=== PATIENT | male | born 1945 | race Caucasian/White ===

== ENCOUNTER 2024-12-20 11:15 | Inpatient (IN) ==
--- NOTE | 2024-12-20 11:34 | Emergency Department Note ---
Impression & Plan Acute hypotension, Acute UTI, Weakness ED Provider Note NAME: ADELFO BURROWS AGE: 79 SEX: M : 1945 ARRIVES VIA: Ambulance INFORMANT: Patient ED PROVIDER(S): [place] Leal DO CHIEF COMPLAINT: Dizzy/weak HPI: Patient is a 79-year-old male with a past medical history of diabetes who presents to the ER for dizziness and weakness. He notes this has been present for the past week. He saw his PCP on Tuesday and they cut one of his blood pressure medications in half. He has fallen 3 times this week. Today he almost fell several times. This is significantly worse with changing positions. If he stays still it is better. He sometimes does get the feeling like the room is spinning. Denies any weakness or numbness in the arms or legs. No headache or change in vision. No chest pain or shortness of breath. No dysuria, urgency, or frequency. No other exacerbating or remitting factors. He does not know which medication they changed. ADDITIONAL HISTORY OBTAINED: Per HPI Chronic Medical/Social Conditions Affecting Care: Per HPI PAST MEDICAL HISTORY:See Below PAST SURGICAL HISTORY:See Below FAMILY HISTORY:See Below SOCIAL HISTORY:See Below HOME MEDICATIONS:See Below ALLERGIES:See Below VITALS:See Below PHYSICAL EXAMINATION: GENERAL: Sitting up in bed, alert, well appearing, well nourished, no distress, non-toxic EYE EXAM: normal conjunctiva. PERRL and EOM's grossly intact. OROPHARYNX: no exudate, no erythema, lips, buccal mucosa, and tongue normal and mucous membranes are moist NECK: supple, no nuchal rigidity, no adenopathy, non-tender LUNGS: Clear to auscultation. Normal chest wall mechanics HEART: no murmurs, S1 normal and S2 normal ABDOMEN: abdomen soft, non-tender, normo-active bowel sounds, no masses, no rebound or guarding. UPPER EXTREMITIES: upper extremities are grossly normal. LOWER EXTREMITIES: No pitting edema. NEURO EXAM: Normal sensorium, cranial nerves II-XII grossly intact, normal speech, no gross weakness of arms, no gross weakness of legs. No drift. Finger to nose intact. Gross sensation intact. MEDICAL DECISION MAKING: Patient is a 79-year-old male with a past medical history of cardiomyopathy and orthostasis who presents to the ER for the above-stated complaint. IV was established and blood work was obtained. Labs show mild leukocytosis 11.9 thousand. No significant anemia. BMP with mild hyponatremia at 131. LFTs and bilirubin were unremarkable. Lipase is normal. UA consistent with UTI. Blood pressures here were appropriate. External records were reviewed which were sent in which did [facility]s to 90s. Patient was given IV Rocephin updated at bedside as well as IV fluids. Discussed case with the hospitalist for further evaluation management treatment. CT angios of the head and neck were negative. Consults/Care Managements Discussions: Per [facility] Triage Nursing notes reviewed. Limited review of prior medical records performed Vital Signs: reviewed and remarkable for no significant abnormalities Differential diagnosis: Differential diagnosis includes etiologies such as benign positional vertigo, dehydration, hypovolemia, anemia, tumor, infection, hypoglycemia, electrolyte abnormalities, cardiac sources, intracerebral event, toxicologic, neurological, as well as others were entertained. ER treatment provided: See below Diagnostics interpreted by me include EKG and cardiac monitoring as listed below: -Cardiac Monitoring: An order was placed for continuous cardiac monitoring. The monitor shows a rate of 88 with sinus rhythm. -ECG: Sinus rhythm rate 88 Right bundle branch block QTc 505 -Laboratory studies:Interpreted by me as stated above in MDM and shown below. Imaging studies: Xrays: As interpreted by me: Portable AP upright 1 view of the chest shows no focal infiltrate CTs show: CT angios of the head and neck showed no acute pathology Procedures:none Critical Care: None Past Med/Surg History Problem List (Updated 12/20/24 @ 17:04 by Los Leal DO) Weakness (Acute) Acute UTI (Acute) Acute hypotension (Acute) HLD (hyperlipidemia) Orthostasis Cardiomyopathy Peripheral arterial disease (Chronic) Open wound of abdomen (Acute) Diabetic ulcer of left great toe (Acute) Social History Smoking Status: Former smoker Hx Alcohol Use: No Hx Substance Use: No Preferred Language: Afghan Communication Ability: Effective Hearing Ability: Normal Overhead Foreman Required: No Beliefs That Will Affect Care: None marital status: Unknown Current Living Situation: Family Current Living Situation Comment: Lives w/ daughter current occupation: retired Feels Safe at Home: Yes Diet: regular caffeine: Yes during the past year weight has: remained stable Assistive Devices: Cane and Walker Allergies Allergies Allergy/AdvReac Type Severity Reaction Status Date / Time doxycycline AdvReac Verified 11/30/24 13:06 gabapentin AdvReac Verified 11/30/24 13:06 morphine AdvReac Verified 11/30/24 13:06 niacin AdvReac Verified 11/30/24 13:06 [From Niaspan Extended-Release] semaglutide AdvReac Verified 11/30/24 13:06 spironolactone AdvReac Verified 11/30/24 13:06 Home Meds Home Medications Medication Instructions Recorded Confirmed acetaminophen 325 mg capsule 650 mg PO TID PRN PAIN/FEVER 11/01/24 12/20/24 amlodipine 10 mg tablet 10 mg PO DAILY 11/01/24 12/20/24 aspirin 81 mg tablet,delayed 81 mg PO DAILY 11/01/24 12/20/24 release azithromycin 250 mg tablet 250 mg PO .MWF 11/01/24 12/20/24 budesonide 160 mcg-glycopyr 9 2 inh inhalation BID 11/01/24 12/20/24 mcg-formot 4.8 mcg/actuation HFA inhaler (Breztri Aerosphere) calcium carbonate-ergocalciferol 1 cap PO BID 11/01/24 12/20/24 (vit D2) 1,200 mg-400 unit capsule carboxymethylcellulose sodium 1 % 1 drp ophthalmic (eye) QID 11/01/24 12/20/24 eye gel in a dropperette carvedilol 25 mg tablet 25 mg PO BID 11/01/24 12/20/24 cetirizine 10 mg tablet (Zyrtec) 10 mg PO DAILY PRN allergies 11/01/24 12/20/24 ciclopirox 8 % topical solution 1 applic topical DAILY 11/01/24 12/20/24 duloxetine 20 mg capsule,delayed 80 mg PO DAILY 11/01/24 12/20/24 release finasteride 5 mg tablet 5 mg PO DAILY 11/01/24 12/20/24 fluticasone propionate 50 1 spray intranasal BID PRN 11/01/24 12/20/24 mcg/actuation nasal Congestion spray,suspension (Flonase Allergy Relief) fremanezumab-vfrm 225 mg/1.5 mL 225 mg subcut MONTHLY 11/01/24 12/20/24 subcutaneous auto-injector guaifenesin 400 mg tablet 600 mg PO BID PRN cough 11/01/24 12/20/24 hydralazine 50 mg tablet 50 mg PO BID 11/01/24 12/20/24 insulin aspart U-100 100 unit/mL 18 unit subcut BID 11/01/24 12/20/24 (3 mL) subcutaneous pen (Novolog FlexPen U-100 Insulin aspart) insulin glargine 100 unit/mL (3 56 unit subcut UD 11/01/24 12/20/24 mL) subcutaneous pen liraglutide 0.6 mg/0.1 mL (18 mg/3 1.8 mg subcut DAILY 11/01/24 12/20/24 mL) subcutaneous pen injector (365Scores 2-Bhaskar) miconazole nitrate 2 % topical 1 applic topical BID 11/01/24 12/20/24 powder nortriptyline 25 mg capsule 50 mg PO .QHS PRN pain 11/01/24 12/20/24 omeprazole 20 mg capsule,delayed 20 mg PO BID 11/01/24 12/20/24 release polyethylene glycol 3350 17 17 g PO DAILY PRN Constipation 11/01/24 12/20/24 gram/dose oral powder primidone 50 mg tablet 125 mg PO .QHS tremors 11/01/24 12/20/24 tamsulosin 0.4 mg capsule 0.4 mg PO BID 11/01/24 12/20/24 ubrogepant 100 mg tablet 100 mg PO DIRECTED per migraine 11/01/24 12/20/24 instructions albuterol sulfate 90 mcg/actuation 2 puff inhalation Q6H PRN sob 12/20/24 12/20/24 aerosol inhaler carbamide peroxide 6.5 % ear drops 5 drp otic (ear) BID 12/20/24 12/20/24 dextrose 15 gram/33 gram oral gel 15 g PO DIRECTED PRN low sugar 12/20/24 12/20/24 packet glucagon HCl 1 mg solution for 1 mg IM DIRECTED PRN low blood 12/20/24 12/20/24 injection (Glucagon (HCl) sugar Emergency Kit) ketorolac 0.5 % eye drops 1 drp ophthalmic (eye) UD 12/20/24 12/20/24 metformin 500 mg tablet,extended 1,000 mg PO BID 12/20/24 12/20/24 release 24 hr mineral oil-isopropyl myristat 1 applic topical DAILY PRN Dry Skin 12/20/24 12/20/24 lotion moxifloxacin 0.5 % eye drops 1 drp ophthalmic (eye) QID 12/20/24 12/20/24 prednisolone acetate 1 % eye 1 drp ophthalmic (eye) QID 12/20/24 12/20/24 drops,suspension sacubitril 24 mg-valsartan 26 mg 1 tab PO BID 12/20/24 12/20/24 tablet (Entresto) sodium chloride 0.65 % nasal spray 1 spray intranasal DAILY PRN dry 12/20/24 12/20/24 aerosol nose zinc oxide 1 ea topical DAILY PRN skin 12/20/24 12/20/24 protectant Results & Data (ED) Vital Signs Vital Signs - 24 hr 12/20/24 11:24 12/20/24 11:27 12/20/24 11:30 Temperature 36.7 C Temperature Source Oral Pulse Rate 91 H 89 Pulse Rate from SpO2 Sensor Respiratory Rate 20 26 H Respiratory Effort / Characteristics Non-Labored Spontaneous Respiratory Depth Normal Respiratory Pattern Regular Blood Pressure 131/72 143/77 H Blood Pressure Mean 91 91 Pulse Oximetry 94 Oxygen Delivery Method Room Air Sepsis Recent Fever Within 48 Hours No Sepsis New/Unexplained Change in Mental Status No Sepsis Action Taken by Nursing No Action Required 12/20/24 11:30 12/20/24 11:39 12/20/24 11:46 Temperature Temperature Source Pulse Rate 89 83 Pulse Rate from SpO2 Sensor Respiratory Rate 15 14 Respiratory Effort / Characteristics Respiratory Depth Respiratory Pattern Blood Pressure 137/84 Blood Pressure Mean 105 Pulse Oximetry Oxygen Delivery Method Sepsis Recent Fever Within 48 Hours Sepsis New/Unexplained Change in Mental Status Sepsis Action Taken by Nursing 12/20/24 11:54 12/20/24 12:00 12/20/24 12:06 Temperature Temperature Source Pulse Rate 81 83 Pulse Rate from SpO2 Sensor 84 81 Respiratory Rate 13 14 Respiratory Effort / Characteristics Respiratory Depth Respiratory Pattern Blood Pressure 148/82 H Blood Pressure Mean 109 Pulse Oximetry 95 96 Oxygen Delivery Method Room Air Room Air Sepsis Recent Fever Within 48 Hours Sepsis New/Unexplained Change in Mental Status Sepsis Action Taken by Nursing 12/20/24 12:33 12/20/24 12:39 12/20/24 13:03 Temperature Temperature Source Pulse Rate 101 H 88 92 H Pulse Rate from SpO2 Sensor Respiratory Rate 20 21 Respiratory Effort / Characteristics Respiratory Depth Respiratory Pattern Blood Pressure Blood Pressure Mean Pulse Oximetry Oxygen Delivery Method Sepsis Recent Fever Within 48 Hours Sepsis New/Unexplained Change in Mental Status Sepsis Action Taken by Nursing Laboratory Data 12/20/24 11:27 12/20/24 11:27 Lab Results 12/20/24 12/20/24 Range/Units 11:27 12:22 WBC 10.92 H (4.8-10.8) K/ul RBC 5.66 (4.70-6.10) M/uL Hgb 15.1 (14.0-18.0) g/dl Hct 46.6 (42.0-52.0) % MCV 82.3 (80.0-100.0) fL MCH 26.7 (25.0-34.0) pg MCHC 32.4 (32.0-36.0) g/dL RDW Std Deviation 45.1 (36.4-46.3) fL RDW Coeff of Josue 14.9 H (11.5-14.5) % Plt Count 265 (130-400) K/uL MPV 9.3 L (9.4-12.4) fL Immature Gran % (Auto) 0.8 % Neut % (Auto) 72.2 % Lymph % (Auto) 14.1 % [place] % (Auto) 10.0 % Eos % (Auto) 2.2 % Baso % (Auto) 0.7 % Neut # (Auto) 7.88 H (1.40-6.50) K/uL Lymph # (Auto) 1.54 (1.20-3.40) K/uL [place] # (Auto) 1.09 H (0.11-0.59) K/uL Eos # (Auto) 0.24 (0.00-0.50) K/uL Baso # (Auto) 0.08 (0.00-0.20) K/uL Immature Gran # (Auto) 0.09 (0.01-0.20) K/uL Sodium 131 L (136-145) mmol/L Potassium 4.3 (3.5-5.1) mmol/L Chloride 94 L (98-107) mmol/L Carbon Dioxide 32 (21-32) mmol/L Anion Gap 5 (3-11) BUN 17 (6-23) mg/dl Creatinine 0.88 (0.6-1.4) mg/dl Est Cr Clr Drug Dosing 89.8 ml/min eGFR 88.56 BUN/Creatinine Ratio 19.3 (10-20) Glucose 237 H (70-99(Fasting)) mg/dl Calcium 9.8 (8.6-10.3) mg/dl Total Bilirubin 0.4 (0.2-1.0) mg/dl AST 13 (13-39) U/L ALT 12 (7-52) U/L Alkaline Phosphatase 82 (34-104) U/L Troponin I High Sens 5.9 (0-20) pg/ml Total Protein 7.4 (6.0-8.3) gm/dl Albumin 4.2 (3.4-5.0) gm/dl Globulin 3.2 (2.5-4.0) gm/dl Albumin/Globulin Ratio 1.3 (0.9-2) Lipase 18 (11-82) U/L Urine Color Yellow Urine Appearance Clear (Clear) Urine pH 7.0 (4.5-7.5) Ur Specific [place] 1.014 (1.000-1.030) Urine Protein Negative (Negative) Urine Glucose (UA) Negative (Negative) Urine Ketones Negative (Negative) Urine Blood Negative (Negative) Urine Nitrite Negative (Negative) Urine Bilirubin Negative (Negative) Urine Urobilinogen Negative (Negative) Ur Leukocyte Esterase 2+ H (Negative) Urine WBC (Auto) 21-50 H (0-5) /hpf Urine RBC (Auto) 0-2 (0-2) /hpf U Hyaline Cast (Auto) 0-2 (0-2) /lpf U Epithel Cells (Auto) 0-2 (0-2) /hpf Urine Bacteria (Auto) None Seen (None Seen) Administered Medications Discontinued Medications Sodium Chloride (Nss) 500 mls @ 999 mls/hr IV .Q31M ONE Stop: 12/20/24 12:01 Last Infusion: 12/20/24 12:34 Dose: Infused Documented By: Admin: 12/20/24 11:42 Dose: 999 mls/hr Documented By: JOJO Ceftriaxone Sodium (Rocephin) 2,000 mg in 50 mls @ 100 mls/hr IV NOW STA Stop: 12/20/24 13:19 Last Infusion: 12/20/24 13:38 Dose: Infused Documented By: Admin: 12/20/24 13:07 Dose: 100 mls/hr Documented By: JOSH Ioversol (Optiray 320 125ml) 119 ml IV ONCE ONE Stop: 12/20/24 12:26 Last Admin: 12/20/24 12:25 Dose: 119 ml Documented By: Imaging Data Radiologist's Impression: Chest X-Ray 12/20/24 11:31 XR chest 1V portable CLINICAL HISTORY: Chest pain, nonspecific COMPARISON STUDY: None FINDINGS: Left-sided cardiac pacemaker is present. Heart size and pulmonary vasculature are normal. Lungs are hyperexpanded suggesting emphysema. No effusion, consolidation, or pneumothorax. There is an old right mid rib fracture. IMPRESSION: No acute findings. ACT 112: Negative or not required by law. Electronically signed by: Remi Darling M.D. 12/20/2024 11:48 AM Head CTA 12/20/24 11:31 CT angio head wo/w CLINICAL HISTORY: dizzy COMPARISON STUDY: None FINDINGS: Noncontrast head CT: No intracranial hemorrhage seen. No mass effect, midline shift, or hydrocephalus. No skull fracture seen. CTA: The visualized distal left vertebral artery is extremely diminutive and terminates in PICA, anatomic variant. Distal right vertebral artery and bilateral distal internal carotid arteries are widely patent. Basilar artery is diminutive but patent. The anterior, middle, and posterior cerebral arteries are patent bilaterally. 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 Cerebral venous sinuses opacify normally. There is a 1.2 cm mass anterior left temporal lobe series 6 image 103, possible meningioma. IMPRESSION: 1. No acute findings. 2. No significant arterial narrowing or occlusion seen at the brain. 3. Possible small meningioma anterior left temporal lobe. ACT 112: Positive. There are findings on this exam that require communication between the performing entity and the patient following Patient Test Result Information Act ([place] Act 112) guidelines. Electronically signed by: Remi Darling M.D. 12/20/2024 12:40 PM Neck CTA 12/20/24 11:31 CT ANGIOGRAPHY OF THE NECK WITH CONTRAST CLINICAL HISTORY: Dizziness. COMPARISON STUDY: No previous studies for comparison. Technique: CT angiography of the carotid and vertebral arteries was obtained using Optiray and 3D reconstruction on an independent workstation. NASCET criteria was utilized. Automated exposure control was utilized for the study. A dose lowering technique was utilized adhering to the principles of ALARA. CT DOSE: 1255.61 mGy.cm Findings: Emphysema is incidentally noted within the visualized lung apices. There is no cervical lymphadenopathy. This exam is compromised by artifact related to contrast within the veins within the neck. The left vertebral artery is diminutive, likely on a congenital basis. Right vertebral artery is dominant. No stenosis or dissection within the right vertebral artery is present. There is mild plaque within the left carotid bifurcation without stenosis. There is moderate plaque within the right carotid bifurcation which results in mild stenosis of the proximal right internal carotid artery. Vessel measures 3.5 cm at site of narrowing and 4.8 mm distally. There is moderate stenosis at the origin the right external carotid artery. No aneurysm within the neck. IMPRESSION: 1. 30% stenosis of the proximal right internal carotid artery due to calcified atherosclerotic plaque. 2. Moderate stenosis at the origin the right external carotid artery. 3. Diminutive left vertebral artery, likely on a congenital basis. Dominant, patent right vertebral artery. ACT 112: Negative or not required by law. Electronically signed by: Farshad Fraire M.D. 12/20/2024 12:43 PM Discharge Plan Visit Data Chief Complaint: Dizziness Stated Complaint: DIZIINESS, HYPOTENSION ED Provider: Los Leal Discharge Problem: Acute hypotension, Acute UTI, Weakness Patient Disposition: Admitted As Inpatient Discharge Instructions Interventions: ED Discharge Assessment Last Done: 12/20/24 16:38
[2024-12-20] MEDS: SODIUM CHLORIDE 0.9% 500 ML IV ONE (11:42)
[2024-12-20 11:43] LABS: Basophils # (auto) 0.08 K/uL (0.00-0.20); Basophils % (auto) 0.7 %; Eosinophils # (auto) 0.24 K/uL (0.00-0.50); Eosinophils % (auto) 2.2 %; Hematocrit (blood only) 46.6 % (42.0-52.0); Hemoglobin 15.1 g/dl (14.0-18.0); Immature Granulocytes # (auto) 0.09 K/uL (0.01-0.20); Immature Granulocytes % (auto) 0.8 %; Lymphocytes # (auto) 1.54 K/uL (1.20-3.40); Lymphocytes % (auto) 14.1 %; Mean Corpuscular Hemoglobin 26.7 pg (25.0-34.0); Mean Corpuscular Hgb Conc 32.4 g/dL (32.0-36.0); Mean Corpuscular Volume 82.3 fL (80.0-100.0); Mean Platelet Volume 9.3 fL (9.4-12.4); Monocytes # (auto) 1.09 K/uL (0.11-0.59); Neutrophils # (auto) 7.88 K/uL (1.40-6.50); Neutrophils % (auto) 72.2 %; Platelet Count 265 K/uL (130-400); RDW Coefficient of Variation 14.9 % (11.5-14.5); RDW Standard Deviation 45.1 fL (36.4-46.3); Red Blood Count 5.66 M/uL (4.70-6.10); White Blood Count 10.92 K/ul (4.8-10.8)
--- NOTE | 2024-12-20 11:50 | XRay Report ---
XR chest 1V portable CLINICAL HISTORY: Chest pain, nonspecific COMPARISON STUDY: None FINDINGS: Left-sided cardiac pacemaker is present. Heart size and pulmonary vasculature are normal. L ungs are hyperexpanded suggesting emphysema. No effusion, consolidation, or pneumothorax. There is an old right mid rib fracture. IMPRESSION: No acute findings. ACT 112: Negative or not required by law. Electronically signed by: Remi Darling M.D. 12/20/2024 11:48 AM
[2024-12-20 12:02] LABS: Albumin Globulin Ratio 1.3 (0.9-2); Albumin Level 4.2 gm/dl (3.4-5.0); BUN Creatinine Ratio 19.3 (10-20); Bilirubin,Total 0.4 mg/dl (0.2-1.0); Calcium 9.8 mg/dl (8.6-10.3); Creatinine Clr Calc Pharmacy 89.8 ml/min; Globulin 3.2 gm/dl (2.5-4.0); Potassium 4.3 mmol/L (3.5-5.1); Total Protein 7.4 gm/dl (6.0-8.3)
[2024-12-20 12:08] LABS: Troponin I High Sensitivity 5.9 pg/ml (0-20)
[2024-12-20] MEDS: OPTIRAY 320 125ml IV ONE (12:25)
--- NOTE | 2024-12-20 12:42 | CT Scan Report ---
CT angio head wo/w CLINICAL HISTORY: dizzy COMPARISON STUDY: None FINDINGS: Noncontrast head CT: No intracranial hemorrhage seen. No mass effect, midline shift, or hydrocephalus . No skull fracture seen. CTA: The visualized distal left vertebral artery is extremely diminutive and terminates in PICA, rowdy omic variant. Distal right vertebral artery and bilateral distal internal carotid arteries are widely patent. Basilar artery is diminutive but patent. The anterior, middle, and posterior cerebral arteri es are patent bilaterally. 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 Cerebral venous sinuses opacify no rmally. There is a 1.2 cm mass anterior left temporal lobe series 6 image 103, possible meningioma. IMPRESSION: 1. No acute findings. 2. No significant arterial narrowing or occlusion seen at the brain. 3. Possible small meningioma anterior left temporal lobe. ACT 112: Positive. There are findings on this exam that require communication between the performing entity and the patient following Patient Test Result Information Act ([place] Act 112) guidelines. Electronically signed by: Remi Darling M.D. 12/20/2024 12:40 PM
--- NOTE | 2024-12-20 12:44 | CT Scan Report ---
CT ANGIOGRAPHY OF THE NECK WITH CONTRAST CLINICAL HISTORY: Dizziness. COMPARISON STUDY: No previous studies for comparison. Technique: CT angiography of the carotid and vertebral arteries was obtained using Optiray and 3D rec onstruction on an independent workstation. NASCET criteria was utilized. Automated exposure control was utilized for the study. A dose lowering technique was utilized adhering to the principles of ALA RA. CT DOSE: 1255.61 mGy.cm Findings: Emphysema is incidentally noted within the visualized lung apices. There is no cervical lym phadenopathy. This exam is compromised by artifact related to contrast within the veins within the ne ck. The left vertebral artery is diminutive, likely on a congenital basis. Right vertebral artery is dominant. No stenosis or dissection within the right vertebral artery is present. There is mild plaqu e within the left carotid bifurcation without stenosis. There is moderate plaque within the right car otid bifurcation which results in mild stenosis of the proximal right internal carotid artery. Vessel measures 3.5 cm at site of narrowing and 4.8 mm distally. There is moderate stenosis at the origin t he right external carotid artery. No aneurysm within the neck. IMPRESSION: 1. 30% stenosis of the proximal right internal carotid artery due to calcified atherosclerotic plaque . 2. Moderate stenosis at the origin the right external carotid artery. 3. Diminutive left vertebral artery, likely on a congenital basis. Dominant, patent right vertebral a rtery. ACT 112: Negative or not required by law. Electronically signed by: Farshad Fraire M.D. 12/20/2024 12:43 PM
[2024-12-20 12:45] LABS: Appearance Urine Clear (Clear); Bacteria Urine Automated None Seen (None Seen); Bilirubin Urine Negative (Negative); Blood Urine Negative (Negative); Cast Urine Automated 0-2 /lpf (0-2); Color Urine Yellow; Epithelial Cell Urine Auto 0-2 /hpf (0-2); Glucose Urine UA Negative (Negative); Ketones Urine Negative (Negative); Leukocyte Esterase Urine 2+ (Negative); Nitrite Urine Negative (Negative); Protein Urine Negative (Negative); RBC Urine Automated 0-2 /hpf (0-2); Specific Gravity Urine 1.014 (1.000-1.030); Urobilinogen Urine Negative (Negative); WBC Urine Automated 21-50 /hpf (0-5)
--- NOTE | 2024-12-20 12:51 | Electrocardiogram Report ---
Test Reason : Blood Pressure : */* mmHG Vent. Rate : 88 BPM Atrial Rate : 88 BPM P-R Int : 124 ms QRS Dur : 166 ms QT Int : 418 ms P-R-T Axes : 88 257 65 degrees QTcB Int : 505 ms Atrial sensing, ventricular pacing Premature ventricular complexes Abnormal ECG No previous ECGs available Confirmed by Emeterio Pond ([id number]) on 12/20/2024 12:50:42 PM Referred By: REFERRED SELF Confirmed By: Emeterio Pond
[2024-12-20] MEDS: cefTRIAXone SODIUM 2,000 MG/50 ML BAG IV STA (13:07)
--- NOTE | 2024-12-20 14:16 | History & Physical Report ---
Date of Service December 20, 2024 Assessment & Plan (1) Peripheral arterial disease: (2) Cardiomyopathy: (3) Orthostasis: (4) HLD (hyperlipidemia): Plan The patient is a 79-year-old male with a past medical history of cardiomyopathy, EF 25% who presents to the ED on with complaints of dizziness and frequent falls over the past month, recently worsening over the past week Dizziness Orthostasis Dizziness worsening with positional changes, suggestive of orthostasis Follows with outpatient cardiology for possible adjusting of cardiac medications Check orthostatic vitals, check echo, tried lightly with IV fluids with low EF of 25% Consult cardiology for further recommendations with extensive cardiac history Hx ischemic cardiomyopathy/CHF Hx HLD Hx HTN Continue carvedilol, hold hydralazine/Norvasc, continue Entresto Unclear if patient is currently on a diuretic, appears euvolemic on exam, will check BNP Hx COPD: Continue home inhalers, nonactive COPD exacerbation Hx DM2 -SSI/twice daily BGM, hold metformin, consult glycemic pharmacy A total of 60 minutes was spent on chart review/reviewing diagnostic data/facilitating plan of care/discussion with consultants Full code DVT prophylaxis: Lovenox History of Present Illness Chief Complaint: Dizziness, falls Primary Care Provider: Layla Scanlon PA-C The patient is a 79-year-old man with a past medical history of cardiomyopathy, nonischemicEF 20 to 25%, PM, mitral valve regurgitation, COPD, CHF, HTN, HLD who presents to the ED with complaints of ongoing dizziness and intermittent shortness of breath over the past month. Patient reports 34 recent falls over the past week due to dizziness with positional changes. Follows with cardiology. Poor historian. Unclear what cardiac medications he takes. He also reports being recently taken off one of his cardiac medications due to concerns of orthostasis. He is unsure which medication was changed. He reports his blood pressure was in the 80s when he was seen at the patternmaker grader office. He denies any lower extremity swelling. Denies any nausea/vomiting/diarrhea. Denies any abdominal pain. Reports dizziness with any type of movement. Follows with the [facility] outpatient for cardiology. Reports getting a recent echo and his EF is still 25%. On arrival to the ED, labs remarkable for WBC 10.9, NA 131, chloride 94, glucose 237 Chest x-ray negative Neck CTA showed: 1. 30% stenosis of the proximal right internal carotid artery due to calcified atherosclerotic plaque. 2. Moderate stenosis at the origin the right external carotid artery. 3. Diminutive left vertebral artery, likely on a congenital basis. Dominant, patent right vertebral artery. Head CTA showed: 1. No acute findings. 2. No significant arterial narrowing or occlusion seen at the brain. 3. Possible small meningioma anterior left temporal lobe. EKG without any acute changes The patient be admitted for further management of dizziness and orthostasis Allergies Allergy/AdvReac Type Severity Reaction Status Date / Time doxycycline AdvReac Verified 11/30/24 13:06 gabapentin AdvReac Verified 11/30/24 13:06 morphine AdvReac Verified 11/30/24 13:06 niacin AdvReac Verified 11/30/24 13:06 [From Niaspan Extended-Release] semaglutide AdvReac Verified 11/30/24 13:06 spironolactone AdvReac Verified 11/30/24 13:06 Home Medications Medication Instructions Recorded Confirmed Type acetaminophen 325 mg capsule 650 mg PO TID PRN PAIN/FEVER 11/01/24 12/20/24 History amlodipine 10 mg tablet 10 mg PO DAILY 11/01/24 12/20/24 History aspirin 81 mg tablet,delayed 81 mg PO DAILY 11/01/24 12/20/24 History release azithromycin 250 mg tablet 250 mg PO .MWF 11/01/24 12/20/24 History budesonide 160 mcg-glycopyr 9 2 inh inhalation BID 11/01/24 12/20/24 History mcg-formot 4.8 mcg/actuation HFA inhaler (Breztri Aerosphere) calcium carbonate-ergocalciferol 1 cap PO BID 11/01/24 12/20/24 History (vit D2) 1,200 mg-400 unit capsule carboxymethylcellulose sodium 1 % 1 drp ophthalmic (eye) QID 11/01/24 12/20/24 History eye gel in a dropperette carvedilol 25 mg tablet 25 mg PO BID 11/01/24 12/20/24 History cetirizine 10 mg tablet (Zyrtec) 10 mg PO DAILY PRN allergies 11/01/24 12/20/24 History ciclopirox 8 % topical solution 1 applic topical DAILY 11/01/24 12/20/24 History duloxetine 20 mg capsule,delayed 80 mg PO DAILY 11/01/24 12/20/24 History release finasteride 5 mg tablet 5 mg PO DAILY 11/01/24 12/20/24 History fluticasone propionate 50 1 spray intranasal BID PRN 11/01/24 12/20/24 History mcg/actuation nasal Congestion spray,suspension (Flonase Allergy Relief) fremanezumab-vfrm 225 mg/1.5 mL 225 mg subcut MONTHLY 11/01/24 12/20/24 History subcutaneous auto-injector guaifenesin 400 mg tablet 600 mg PO BID PRN cough 11/01/24 12/20/24 History hydralazine 50 mg tablet 50 mg PO BID 11/01/24 12/20/24 History insulin aspart U-100 100 unit/mL 18 unit subcut BID 11/01/24 12/20/24 History (3 mL) subcutaneous pen (Novolog FlexPen U-100 Insulin aspart) insulin glargine 100 unit/mL (3 56 unit subcut UD 11/01/24 12/20/24 History mL) subcutaneous pen liraglutide 0.6 mg/0.1 mL (18 mg/3 1.8 mg subcut DAILY 11/01/24 12/20/24 History mL) subcutaneous pen injector (TimeCast 2-Bhaskar) miconazole nitrate 2 % topical 1 applic topical BID 11/01/24 12/20/24 History powder nortriptyline 25 mg capsule 50 mg PO .QHS PRN pain 11/01/24 12/20/24 History omeprazole 20 mg capsule,delayed 20 mg PO BID 11/01/24 12/20/24 History release polyethylene glycol 3350 17 17 g PO DAILY PRN Constipation 11/01/24 12/20/24 History gram/dose oral powder primidone 50 mg tablet 125 mg PO .QHS tremors 11/01/24 12/20/24 History tamsulosin 0.4 mg capsule 0.4 mg PO BID 11/01/24 12/20/24 History ubrogepant 100 mg tablet 100 mg PO DIRECTED per migraine 11/01/24 12/20/24 History instructions albuterol sulfate 90 mcg/actuation 2 puff inhalation Q6H PRN sob 12/20/24 12/20/24 History aerosol inhaler carbamide peroxide 6.5 % ear drops 5 drp otic (ear) BID 12/20/24 12/20/24 History dextrose 15 gram/33 gram oral gel 15 g PO DIRECTED PRN low sugar 12/20/24 12/20/24 History packet glucagon HCl 1 mg solution for 1 mg IM DIRECTED PRN low blood 12/20/24 12/20/24 History injection (Glucagon (HCl) sugar Emergency Kit) ketorolac 0.5 % eye drops 1 drp ophthalmic (eye) UD 12/20/24 12/20/24 History metformin 500 mg tablet,extended 1,000 mg PO BID 12/20/24 12/20/24 History release 24 hr mineral oil-isopropyl myristat 1 applic topical DAILY PRN Dry Skin 12/20/24 12/20/24 History lotion moxifloxacin 0.5 % eye drops 1 drp ophthalmic (eye) QID 12/20/24 12/20/24 History prednisolone acetate 1 % eye 1 drp ophthalmic (eye) QID 12/20/24 12/20/24 History drops,suspension sacubitril 24 mg-valsartan 26 mg 1 tab PO BID 12/20/24 12/20/24 History tablet (Entresto) sodium chloride 0.65 % nasal spray 1 spray intranasal DAILY PRN dry 12/20/24 12/20/24 History aerosol nose zinc oxide 1 ea topical DAILY PRN skin 12/20/24 12/20/24 History protectant Past Med/Surg History Problem List (Updated 12/20/24 @ 14:28 by PEDRO Martinez) HLD (hyperlipidemia) Orthostasis Cardiomyopathy Peripheral arterial disease (Chronic) Open wound of abdomen (Acute) Diabetic ulcer of left great toe (Acute) Social History Smoking Status: Former smoker Hx Alcohol Use: No Hx Substance Use: No Preferred Language: Maori Communication Ability: Effective Hearing Ability: Normal Concrete Foreman Required: No Beliefs That Will Affect Care: None marital status: Unknown Current Living Situation: Family Current Living Situation Comment: Lives w/ daughter current occupation: retired Feels Safe at Home: Yes Diet: regular caffeine: Yes during the past year weight has: remained stable Assistive Devices: Cane and Walker Review of Systems Review of Systems: All systems reviewed & are unremarkable except as noted in HPI & below Physical Exam Constitutional: WD/WN, vitals as above Eyes: PERRL, conjunctivae normal, anicteric sclerae ENMT: external ear and nose normal, oropharynx normal Neck: trachea midline, no thyromegaly Respiratory: normal respiratory effort, lungs clear to auscultation Cardiovascular: RRR, no murmur, no edema Gastrointestinal (Abdomen): normal bowel sounds, soft, nontender, no hepatosplenomegaly Musculoskeletal: no cyanosis or clubbing, extremities motor strength 5/5 Neurologic: PERRL, EOMI, accommodation nl, no face palsy, no dysarthria Psychiatric: A+Ox3, euthymic affect Lymphatic: no cervical or axillary lymphadenopathy Results & Data Results & Data Vital Signs (Past 12 Hours) Vital Signs Temp Pulse Resp BP Pulse Ox O2 Del Method 12/20/24 13:31 151/77 H 12/20/24 13:15 152/100 H 12/20/24 13:15 89 17 96 Room Air 12/20/24 13:14 152/90 H 12/20/24 13:03 92 H 21 12/20/24 12:39 88 12/20/24 12:33 101 H 20 12/20/24 12:06 83 14 96 Room Air 12/20/24 12:00 148/82 H 12/20/24 11:54 81 13 95 Room Air 12/20/24 11:46 137/84 12/20/24 11:39 83 14 12/20/24 11:30 89 15 12/20/24 11:30 143/77 H 12/20/24 11:27 89 26 H 12/20/24 11:24 36.7 C 91 H 20 131/72 94 Room Air Diagnostic Findings Laboratory Results WBC 10.92 K/ul (4.8-10.8) H 12/20/24 11:27 RBC 5.66 M/uL (4.70-6.10) 12/20/24 11:27 Hgb 15.1 g/dl (14.0-18.0) 12/20/24 11:27 Hct 46.6 % (42.0-52.0) 12/20/24 11:27 MCV 82.3 fL (80.0-100.0) 12/20/24 11:27 MCH 26.7 pg (25.0-34.0) 12/20/24 11:27 MCHC 32.4 g/dL (32.0-36.0) 12/20/24 11:27 RDW Std Deviation 45.1 fL (36.4-46.3) 12/20/24 11:27 RDW Coeff of Josue 14.9 % (11.5-14.5) H 12/20/24 11:27 Plt Count 265 K/uL (130-400) 12/20/24 11:27 MPV 9.3 fL (9.4-12.4) L 12/20/24 11:27 Immature Gran % (Auto) 0.8 % 12/20/24 11:27 Neut % (Auto) 72.2 % 12/20/24 11:27 Lymph % (Auto) 14.1 % 12/20/24 11:27 [place] % (Auto) 10.0 % 12/20/24 11:27 Eos % (Auto) 2.2 % 12/20/24 11:27 Baso % (Auto) 0.7 % 12/20/24 11:27 Neut # (Auto) 7.88 K/uL (1.40-6.50) H 12/20/24 11:27 Lymph # (Auto) 1.54 K/uL (1.20-3.40) 12/20/24 11:27 [place] # (Auto) 1.09 K/uL (0.11-0.59) H 12/20/24 11:27 Eos # (Auto) 0.24 K/uL (0.00-0.50) 12/20/24 11:27 Baso # (Auto) 0.08 K/uL (0.00-0.20) 12/20/24 11:27 Immature Gran # (Auto) 0.09 K/uL (0.01-0.20) 12/20/24 11:27 Sodium 131 mmol/L (136-145) L 12/20/24 11:27 Potassium 4.3 mmol/L (3.5-5.1) 12/20/24 11:27 Chloride 94 mmol/L (98-107) L 12/20/24 11:27 Carbon Dioxide 32 mmol/L (21-32) 12/20/24 11:27 Anion Gap 5 (3-11) 12/20/24 11:27 BUN 17 mg/dl (6-23) 12/20/24 11:27 Creatinine 0.88 mg/dl (0.6-1.4) 12/20/24 11:27 Est Cr Clr Drug Dosing 89.8 ml/min 12/20/24 11:27 eGFR 88.56 12/20/24 11:27 BUN/Creatinine Ratio 19.3 (10-20) 12/20/24 11:27 Glucose 237 mg/dl (70-99(Fasting)) H 12/20/24 11:27 Calcium 9.8 mg/dl (8.6-10.3) 12/20/24 11:27 Total Bilirubin 0.4 mg/dl (0.2-1.0) 12/20/24 11:27 AST 13 U/L (13-39) 12/20/24 11:27 ALT 12 U/L (7-52) 12/20/24 11:27 Alkaline Phosphatase 82 U/L (34-104) 12/20/24 11:27 Troponin I High Sens 5.9 pg/ml (0-20) 12/20/24 11:27 Total Protein 7.4 gm/dl (6.0-8.3) 12/20/24 11:27 Albumin 4.2 gm/dl (3.4-5.0) 12/20/24 11:27 Globulin 3.2 gm/dl (2.5-4.0) 12/20/24 11:27 Albumin/Globulin Ratio 1.3 (0.9-2) 12/20/24 11:27 Lipase 18 U/L (11-82) 12/20/24 11:27 Urine Color Yellow 12/20/24 12:22 Urine Appearance Clear (Clear) 12/20/24 12:22 Urine pH 7.0 (4.5-7.5) 12/20/24 12:22 Ur Specific Chancellor 1.014 (1.000-1.030) 12/20/24 12:22 Urine Protein Negative (Negative) 12/20/24 12:22 Urine Glucose (UA) Negative (Negative) 12/20/24 12:22 Urine Ketones Negative (Negative) 12/20/24 12:22 Urine Blood Negative (Negative) 12/20/24 12:22 Urine Nitrite Negative (Negative) 12/20/24 12:22 Urine Bilirubin Negative (Negative) 12/20/24 12:22 Urine Urobilinogen Negative (Negative) 12/20/24 12:22 Ur Leukocyte Esterase 2+ (Negative) H 12/20/24 12:22 Urine WBC (Auto) 21-50 /hpf (0-5) H 12/20/24 12:22 Urine RBC (Auto) 0-2 /hpf (0-2) 12/20/24 12:22 U Hyaline Cast (Auto) 0-2 /lpf (0-2) 12/20/24 12:22 U Epithel Cells (Auto) 0-2 /hpf (0-2) 12/20/24 12:22 Urine Bacteria (Auto) None Seen (None Seen) 12/20/24 12:22 Impressions Chest X-Ray 12/20/24 11:31 XR chest 1V portable CLINICAL HISTORY: Chest pain, nonspecific COMPARISON STUDY: None FINDINGS: Left-sided cardiac pacemaker is present. Heart size and pulmonary vasculature are normal. Lungs are hyperexpanded suggesting emphysema. No effusion, consolidation, or pneumothorax. There is an old right mid rib fracture. IMPRESSION: No acute findings. ACT 112: Negative or not required by law. Electronically signed by: Remi Darling M.D. 12/20/2024 11:48 AM Head CTA 12/20/24 11:31 CT angio head wo/w CLINICAL HISTORY: dizzy COMPARISON STUDY: None FINDINGS: Noncontrast head CT: No intracranial hemorrhage seen. No mass effect, midline shift, or hydrocephalus. No skull fracture seen. CTA: The visualized distal left vertebral artery is extremely diminutive and terminates in PICA, anatomic variant. Distal right vertebral artery and bilateral distal internal carotid arteries are widely patent. Basilar artery is diminutive but patent. The anterior, middle, and posterior cerebral arteries are patent bilaterally. There is origin of the right WAREHOUSE REPRESENTATIVE. Cerebral venous sinuses opacify normally. There is a 1.2 cm mass anterior left temporal lobe series 6 image 103, possible meningioma. IMPRESSION: 1. No acute findings. 2. No significant arterial narrowing or occlusion seen at the brain. 3. Possible small meningioma anterior left temporal lobe. ACT 112: Positive. There are findings on this exam that require communication between the performing entity and the patient following Patient Test Result Information Act ([place] Act 112) guidelines. Electronically signed by: Remi Darling M.D. 12/20/2024 12:40 PM Neck CTA 12/20/24 11:31 CT ANGIOGRAPHY OF THE NECK WITH CONTRAST CLINICAL HISTORY: Dizziness. COMPARISON STUDY: No previous studies for comparison. Technique: CT angiography of the carotid and vertebral arteries was obtained using Optiray and 3D reconstruction on an independent workstation. NASCET criteria was utilized. Automated exposure control was utilized for the study. A dose lowering technique was utilized adhering to the principles of ALARA. CT DOSE: 1255.61 mGy.cm Findings: Emphysema is incidentally noted within the visualized lung apices. There is no cervical lymphadenopathy. This exam is compromised by artifact related to contrast within the veins within the neck. The left vertebral artery is diminutive, likely on a congenital basis. Right vertebral artery is dominant. No stenosis or dissection within the right vertebral artery is present. There is mild plaque within the left carotid bifurcation without stenosis. There is moderate plaque within the right carotid bifurcation which results in mild stenosis of the proximal right internal carotid artery. Vessel measures 3.5 cm at site of narrowing and 4.8 mm distally. There is moderate stenosis at the origin the right external carotid artery. No aneurysm within the neck. IMPRESSION: 1. 30% stenosis of the proximal right internal carotid artery due to calcified atherosclerotic plaque. 2. Moderate stenosis at the origin the right external carotid artery. 3. Diminutive left vertebral artery, likely on a congenital basis. Dominant, patent right vertebral artery. ACT 112: Negative or not required by law. Electronically signed by: Farshad Fraire M.D. 12/20/2024 12:43 PM Supervising Physician Co-Signing Physician Notes Attending addendum: The patient was seen and examined in emergency room He has been complaining of dizziness with ambulation and recurrent falls for the last 1 week He mentioned that he is cardiac medication other changes recently Denies any associated symptoms with the dizziness, no chest pain or palpitation, no nausea no vomiting, no sweating or increasing shortness of breath On examination Lying in bed without any acute distress Remains hemodynamically stable at rest on lying down Chestdecreased breath sound at the bases without crackles, has occasional wheezing anteriorly HeartS1-S2, regular, has soft systolic murmur Abdomenbenign Extremitiesno edema CNSalert,awake and oriented x 3 and no focal sensory or no motor deficit appreciated He is admission labs, imaging studies and medications reviewed Has been having dizziness likely secondary to postural hypotension with significant cardiac history as mentioned in H&P May have autonomic neuropathy secondary to diabetes and also mild dehydration His hydralazine and Nosvasc have been on hold and will continue all of his other medications and observe in the hospital He will have an echocardiogram and also will be seen by patternmaker grader given the complexity of cardiac problem Orthostatics will be checked and managed accordingly with medication if needed Agree with assessment plan as outlined above by PEDRO Alcaraz and take the full responsibility of care in the hospital Total time taken in documenting all this was [address] Mohan Morgan
[2024-12-20] MEDS ORDERED: DEXTROSE 50% 50 ML SYRINGE IV PRN (14:41)
[2024-12-20] MEDS ORDERED: PHARMACY GLYCEMIC MGMT CONSULT PRN (14:41)
[2024-12-20] MEDS ORDERED: GLUCOSE 10 TAB/TUBE PO PRN (14:41)
[2024-12-20] MEDS ORDERED: GLUCAGON FOR INJ 1 MG VIAL SQ PRN (14:41)
[2024-12-20] MEDS ORDERED: CARBOHYDRATES FOR HYPOGLYCEMIA PO PRN (14:41)
[2024-12-20] MEDS ORDERED: GLUCOSE 40% GEL 15 GM TUBE PO PRN (14:41)
--- NOTE | 2024-12-20 15:14 | Pharmacy Report ---
Pharmacy Glycemic Short Note 2 - Date of Service December 20, 2024 - Glycemic Short BSG Results (Last 24 hours): 12/20/24 11:27 Glucose 237 H OUTPATIENT ANTIDIABETIC REGIMEN: * Victoza 1.8mg SQ daily * NovoLog 18 units SQ BID * metformin 1000mg BID * HbA1c pending (12/21/24) ASSESSMENT: * Shelton is a 79 year old male admitted with dizziness and falls with a history of type 2 diabetes mellitus. Pharmacy has been consulted to assist with glycemic management while inpatient. * BSG upon admission elevated, will initiate basal insulin up to a weight based stress of 2 with dinner meal based on BSG. * NovoLog initiated at a weight based stress of 2, will stick with a higher goal range for now as presenting with dizziness and falls and do not want to cause additional hypoglycemia. PLAN FOR INPATIENT GLYCEMIC CONTROL: * Hold outpatient oral diabetes medications * Basal insulin * Lantus 0-20 units SQ QDD x1 based on BSG (see eMAR for additional details), reassess in AM * Bolus insulin * NovoLog per scale ACHS or Q6hrs while NPO * Goal Range: Low 140 mg/dL - High 140 mg/dL * Correction Factor: 25 mg/dL/unit * Nutritional / Prandial insulin per carb ratio of 1 unit per 8 grams CHO consumed
[2024-12-20] MEDS: INSULIN ASPART PER UNIT CHARGE SC SCH (18:04)
[2024-12-20] MEDS: LANTUS PER UNIT CHARGE SC ONE (18:05)
[2024-12-20] MEDS: CALCIUM CARBONATE 500 MG CHEWABLE TAB PO PRN (19:54)
[2024-12-20] MEDS: guaiFENesin/DEXTROM SYRUP 100MG/10MG 5ML UDC PO PRN (20:30)
[2024-12-20] MEDS: VALSARTAN/SACUBITRIL 26/24MG TAB PO SCH (20:31)
[2024-12-20] MEDS: carvediloL 25 MG TAB PO SCH (20:31)
[2024-12-20] MEDS: PANTOprazole 40 MG TAB PO PRN (22:37)
[2024-12-21] MEDS: ACETAMINOPHEN 325 MG TAB PO PRN (00:32)
[2024-12-21 07:39] LABS: Basophils # (auto) 0.07 K/uL (0.00-0.20); Eosinophils # (auto) 0.25 K/uL (0.00-0.50); Eosinophils % (auto) 3.4 %; Hemoglobin 14.1 g/dl (14.0-18.0); Immature Granulocytes # (auto) 0.05 K/uL (0.01-0.20); Immature Granulocytes % (auto) 0.7 %; Lymphocytes # (auto) 1.08 K/uL (1.20-3.40); Lymphocytes % (auto) 14.7 %; Mean Corpuscular Hgb Conc 32.8 g/dL (32.0-36.0); Mean Corpuscular Volume 82.2 fL (80.0-100.0); Monocytes % (auto) 13.6 %; Neutrophils # (auto) 4.89 K/uL (1.40-6.50); Neutrophils % (auto) 66.6 %; Platelet Count 226 K/uL (130-400); RDW Coefficient of Variation 14.9 % (11.5-14.5); RDW Standard Deviation 44.7 fL (36.4-46.3); Red Blood Count 5.23 M/uL (4.70-6.10); White Blood Count 7.34 K/ul (4.8-10.8)
[2024-12-21 07:53] LABS: Albumin Globulin Ratio 1.4 (0.9-2); Albumin Level 3.8 gm/dl (3.4-5.0); BUN Creatinine Ratio 13.4 (10-20); Bilirubin,Total 0.4 mg/dl (0.2-1.0); Calcium 8.6 mg/dl (8.6-10.3); Creatinine Clr Calc Pharmacy 87.7 ml/min; Globulin 2.8 gm/dl (2.5-4.0); Magnesium 1.9 mg/dl (1.7-2.4); Total Protein 6.6 gm/dl (6.0-8.3)
--- NOTE | 2024-12-21 08:31 | Hospitalist Progress Note ---
Date of Service December 21, 2024 Assessment & Plan (1) Peripheral arterial disease: (2) Cardiomyopathy: (3) Orthostasis: (4) HLD (hyperlipidemia): Plan The patient is a 79-year-old male with a past medical history of cardiomyopathy, EF 25% who presents to the ED on with complaints of dizziness and frequent falls over the past month, recently worsening over the past week Dizziness Orthostasis Dizziness worsening with positional changes, suggestive of orthostasis Follows with outpatient cardiology for possible adjusting of cardiac medications Check orthostatic vitals, check echo, tried lightly with IV fluids with low EF of 25% Consult cardiology for further recommendations with extensive cardiac history Hx ischemic cardiomyopathy/CHF Hx HLD Hx HTN Continue carvedilol, hold hydralazine/Norvasc, continue Entresto Unclear if patient is currently on a diuretic, appears euvolemic on exam Per cardiology- Recommendations: * Hold hydralazine and amlodipine * Continue carvedilol and Entresto as ordered * No need for diuretic therapy currently * Add bilateral compression stockings. 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 pain, n/v, no dysuria Review of Systems Review of Systems: All systems reviewed & are unremarkable except as noted in Subjective Physical Exam Physical Exam: Constitutional: WD/WN, vitals as a haider Eyes: PERRL, EOMI, conju nctivae normal, an icteric sclerae ENMT: external ear and n ose normal Neck: supple Respiratory: normal respiratory effort, lungs nighat ar to auscultation Cardiovascular: RRR, no murmur, no edema Gastrointestinal ( Abdomen): normal bowel sound s, soft, nontender Musculoskeletal: extremities motor strength 5/5 Neurologic: PERRL, EOMI, no fa ce palsy, no dysar thria, moves extre mities Psychiatric: A+Ox3, euthymic af fect Results & Data Results & Data Vital Signs (Past 12 Hours) Vital Signs Temp Pulse Pulse Resp BP Pulse Ox O2 Del Method 12/21/24 07:00 36.8 C 87 20 147/83 H 94 Room Air 12/21/24 03:36 36.5 C 94 Room Air 12/21/24 00:16 36.8 C 98 H 18 150/71 H 94 Room Air 12/20/24 21:48 98 H Laboratory Results 12/21/24 12/21/24 12/20/24 Range/Units 07:14 07:01 20:21 WBC 7.34 (4.8-10.8) K/ul RBC 5.23 (4.70-6.10) M/uL Hgb 14.1 (14.0-18.0) g/dl Hct 43.0 (42.0-52.0) % MCV 82.2 (80.0-100.0) fL MCH 27.0 (25.0-34.0) pg MCHC 32.8 (32.0-36.0) g/dL RDW Std Deviation 44.7 (36.4-46.3) fL RDW Coeff of Josue 14.9 H (11.5-14.5) % Plt Count 226 (130-400) K/uL MPV 9.0 L (9.4-12.4) fL Immature Gran % (Auto) 0.7 % Neut % (Auto) 66.6 % Lymph % (Auto) 14.7 % [place] % (Auto) 13.6 % Eos % (Auto) 3.4 % Baso % (Auto) 1.0 % Neut # (Auto) 4.89 (1.40-6.50) K/uL Lymph # (Auto) 1.08 L (1.20-3.40) K/uL [place] # (Auto) 1.00 H (0.11-0.59) K/uL Eos # (Auto) 0.25 (0.00-0.50) K/uL Baso # (Auto) 0.07 (0.00-0.20) K/uL Immature Gran # (Auto) 0.05 (0.01-0.20) K/uL Sodium 135 L (136-145) mmol/L Potassium 4.0 (3.5-5.1) mmol/L Chloride 99 (98-107) mmol/L Carbon Dioxide 31 (21-32) mmol/L Anion Gap 5 (3-11) BUN 11 (6-23) mg/dl Creatinine 0.82 (0.6-1.4) mg/dl Est Cr Clr Drug Dosing 87.7 ml/min eGFR 90.47 BUN/Creatinine Ratio 13.4 (10-20) Glucose 162 H (70-99(Fasting)) mg/dl POC Glucose 154 H 174 H (70-99) mg/dl Estimat Average Glucose Pending Hemoglobin A1c Pending Calcium 8.6 (8.6-10.3) mg/dl Magnesium 1.9 (1.7-2.4) mg/dl Total Bilirubin 0.4 (0.2-1.0) mg/dl AST 12 L (13-39) U/L ALT 10 (7-52) U/L Alkaline Phosphatase 72 (34-104) U/L Troponin I High Sens (0-20) pg/ml Total Protein 6.6 (6.0-8.3) gm/dl Albumin 3.8 (3.4-5.0) gm/dl Globulin 2.8 (2.5-4.0) gm/dl Albumin/Globulin Ratio 1.4 (0.9-2) Lipase (11-82) U/L Urine Color Urine Appearance (Clear) Urine pH (4.5-7.5) Ur Specific [place] (1.000-1.030) Urine Protein (Negative) Urine Glucose (UA) (Negative) Urine Ketones (Negative) Urine Blood (Negative) Urine Nitrite (Negative) Urine Bilirubin (Negative) Urine Urobilinogen (Negative) Ur Leukocyte Esterase (Negative) Urine WBC (Auto) (0-5) /hpf Urine RBC (Auto) (0-2) /hpf U Hyaline Cast (Auto) (0-2) /lpf U Epithel Cells (Auto) (0-2) /hpf Urine Bacteria (Auto) (None Seen) 12/20/24 12/20/24 12/20/24 Range/Units 16:33 12:22 11:27 WBC 10.92 H (4.8-10.8) K/ul RBC 5.66 (4.70-6.10) M/uL Hgb 15.1 (14.0-18.0) g/dl Hct 46.6 (42.0-52.0) % MCV 82.3 (80.0-100.0) fL MCH 26.7 (25.0-34.0) pg MCHC 32.4 (32.0-36.0) g/dL RDW Std Deviation 45.1 (36.4-46.3) fL RDW Coeff of Josue 14.9 H (11.5-14.5) % Plt Count 265 (130-400) K/uL MPV 9.3 L (9.4-12.4) fL Immature Gran % (Auto) 0.8 % Neut % (Auto) 72.2 % Lymph % (Auto) 14.1 % [place] % (Auto) 10.0 % Eos % (Auto) 2.2 % Baso % (Auto) 0.7 % Neut # (Auto) 7.88 H (1.40-6.50) K/uL Lymph # (Auto) 1.54 (1.20-3.40) K/uL [place] # (Auto) 1.09 H (0.11-0.59) K/uL Eos # (Auto) 0.24 (0.00-0.50) K/uL Baso # (Auto) 0.08 (0.00-0.20) K/uL Immature Gran # (Auto) 0.09 (0.01-0.20) K/uL Sodium 131 L (136-145) mmol/L Potassium 4.3 (3.5-5.1) mmol/L Chloride 94 L (98-107) mmol/L Carbon Dioxide 32 (21-32) mmol/L Anion Gap 5 (3-11) BUN 17 (6-23) mg/dl Creatinine 0.88 (0.6-1.4) mg/dl Est Cr Clr Drug Dosing 89.8 ml/min eGFR 88.56 BUN/Creatinine Ratio 19.3 (10-20) Glucose 237 H (70-99(Fasting)) mg/dl POC Glucose 157 H (70-99) mg/dl Estimat Average Glucose Hemoglobin A1c Calcium 9.8 (8.6-10.3) mg/dl Magnesium (1.7-2.4) mg/dl Total Bilirubin 0.4 (0.2-1.0) mg/dl AST 13 (13-39) U/L ALT 12 (7-52) U/L Alkaline Phosphatase 82 (34-104) U/L Troponin I High Sens 5.9 (0-20) pg/ml Total Protein 7.4 (6.0-8.3) gm/dl Albumin 4.2 (3.4-5.0) gm/dl Globulin 3.2 (2.5-4.0) gm/dl Albumin/Globulin Ratio 1.3 (0.9-2) Lipase 18 (11-82) U/L Urine Color Yellow Urine Appearance Clear (Clear) Urine pH 7.0 (4.5-7.5) Ur Specific [place] 1.014 (1.000-1.030) Urine Protein Negative (Negative) Urine Glucose (UA) Negative (Negative) Urine Ketones Negative (Negative) Urine Blood Negative (Negative) Urine Nitrite Negative (Negative) Urine Bilirubin Negative (Negative) Urine Urobilinogen Negative (Negative) Ur Leukocyte Esterase 2+ H (Negative) Urine WBC (Auto) 21-50 H (0-5) /hpf Urine RBC (Auto) 0-2 (0-2) /hpf U Hyaline Cast (Auto) 0-2 (0-2) /lpf U Epithel Cells (Auto) 0-2 (0-2) /hpf Urine Bacteria (Auto) None Seen (None Seen) Medications Administered Current Inpatient Medications Acetaminophen (Acetaminophen 325 Mg Tab) 650 mg PO Q4H PRN PRN Reason: Pain or Fever Stop: 01/19/25 16:57 Last Admin: 12/21/24 00:32 Dose: 650 mg Aspirin (Aspirin 81 Mg Ectab) 81 mg PO DAILY ON LICENSE OF [facility] Stop: 01/20/25 08:59 Calcium Carbonate (Calcium Carbonate 500 Mg Chewable Tab) 500 mg PO Q6H PRN PRN Reason: Indigestion Stop: 01/19/25 18:36 Last Admin: 12/20/24 19:54 Dose: 500 mg Carvedilol (Carvedilol 25 Mg Tab) 25 mg PO BIDM ON LICENSE OF [facility] Stop: 01/19/25 20:59 Last Admin: 12/20/24 20:31 Dose: 25 mg Dextrose (Dextrose 50% 50 Ml Syringe) 25 - 50 ml IV UD PRN; Protocol PRN Reason: Hypoglycemia Protocol Stop: 01/19/25 14:40 Duloxetine HCl (Duloxetine Hcl 20 Mg Cap) 80 mg PO DAILY ON LICENSE OF [facility] Stop: 01/20/25 08:59 Enoxaparin Sodium (Enoxaparin Inj 40 Mg/0.4 Ml Syr) 40 mg SQ DAILY ANTONIO Stop: 01/20/25 08:59 Fluticasone Furoate (Fluticasone Furoate 200mcg 14 Puffs/Inhaler) 1 puffs INH DAILY ANTONIO Stop: 01/20/25 08:59 Glucagon (Glucagon For Inj 1 Mg Vial) 1 mg SQ UD PRN; Protocol PRN Reason: Hypoglycemia Protocol Stop: 01/19/25 14:40 Glucose (Glucose 40% Gel 15 Gm Tube) 15 - 30 gm PO UD PRN; Protocol PRN Reason: Hypoglycemia Protocol Stop: 01/19/25 14:40 Glucose (Glucose 10 Tab/Tube) 4 - 8 tab PO UD PRN; Protocol PRN Reason: Hypoglycemia Protocol Stop: 01/19/25 14:40 Guaifenesin/Dextromethorphan (Guaifenesin/Dextrom Syrup 100mg/10mg 5ml Udc) 5 ml PO Q6H PRN PRN Reason: Cough Stop: 01/19/25 20:02 Last Admin: 12/21/24 02:44 Dose: 5 ml Insulin Aspart (Insulin Aspart Per Unit Charge) 0 units SC ACHS ON LICENSE OF [facility] Stop: 01/19/25 16:29 Last Admin: 12/20/24 20:28 Dose: Not Given Miscellaneous (Carbohydrates For Hypoglycemia ) 15 - 30 gm PO UD PRN PRN Reason: Hypoglycemia Protocol Stop: 01/19/25 14:40 Miscellaneous Information (Pharmacy Glycemic Mgmt Consult) 1 each N/A UD PRN PRN Reason: Consult Stop: 01/19/25 14:40 Nortriptyline HCl (Nortriptyline Hcl 25 Mg Cap) 50 mg PO HS PRN PRN Reason: pain Stop: 01/19/25 16:57 Pantoprazole Sodium (Pantoprazole 40 Mg Tab) 40 mg PO DAILY PRN PRN Reason: gerd Stop: 01/19/25 17:36 Last Admin: 12/20/24 22:37 Dose: 40 mg Sacubitril/Valsartan (Valsartan/Sacubitril 26/24mg Tab) 1 tab PO BID ANTONIO Stop: 01/19/25 20:59 Last Admin: 12/20/24 20:31 Dose: 1 tab Tamsulosin HCl (Tamsulosin Hcl 0.4 Mg Cap) 0.4 mg PO DAILY ON LICENSE OF [facility] Stop: 01/20/25 08:59 Umeclidinium/Vilanterol (Umeclidinium/Vilanterol 62.5/25mcg 7 Puffs/Inhaler) 1 puffs INH DAILY ANTONIO Stop: 01/20/25 08:59
--- NOTE | 2024-12-21 08:33 | Cardiology Consultation ---
Date of Consultation December 21, 2024 Assessment & Plan (1) Orthostasis: (2) Dizziness: (3) Dilated cardiomyopathy: (4) Biventricular automatic implantable cardioverter defibrillator in situ: Plan Patient admitted with weakness, dizziness, orthostasis over the last few weeks. Symptoms of orthostatic hypotension started upon [facility] He was taking other high dose antihypertensives at home, likely contributing. Amlodipine and hydralazine discontinued on admission. Continue carvedilol 25 mg BID Continue low dose Entresto 25 mg BID Can reduce doses if needed. He is also on finasteride and Flomax as an outpatient likely contributing to his symptoms. Orthostatic vital signs recommended Compression stockings recommended. Mild permissive hypertension recommended. He also has a long history of neuropathy, and tremors/possible Parkinson per review of chart. These patients are prone to orthostatic hypotension. Long history of dilated non ischemic cardiomyopathy, LVEF 25% with BIV AICD in situ. He reports echo at [facility] recently was unchanged. No arrhythmias on device interrogation Appears euvolemic. Would avoid diuretics at this time Case discussed with Dr. Garcia I spent a total of 60 minutes on the date of service in preparation, delivery, and documentation of the care provided to this patient, excluding any time spent in the performance of separately billed services. Marysol Ziegler PA-C Department of Cardiology, [facility] This chart was completed in part utilizing Speech Voice Recognition Software. Grammatical errors, random word insertions, pronoun errors, and incomplete sen tences are an occasional consequence of this system due to software limitations, ambient noise, and hardware issues. Any formal questions or concerns about the content, text, or information contained within the body of this dictation should be directly addressed to the provider for clarification. Supervising Physician Co-Signing Physician Notes I have personally performed a history and physical examination on the patient. I have reviewed the advance practitioner's documentation, and I agree with, and take responsibility for the plan of care. Complex 79-year-old male with extensive cardiac history noted above presents to the ER with worsening dizziness with positional changes over the past few weeks. Presentation suggests orthostatic hypotension secondary to medications and possible mild volume depletion. Denies syncope. No ICD discharges. Denies chest discomfort or unusual shortness of breath. Recently prescribed Entresto for treatment of nonischemic cardiomyopathy. Amlodipine and hydralazine were placed on hold on admission. Received gentle IV hydration. Feeling better without recurrent dizziness this morning. 2D echocardiogram demonstrates mild improvement of LV systolic function with a left ventricular ejection fraction of 30 to 35%. Patient appears euvolemic/compensated on exam. Recommendations: * Hold hydralazine and amlodipine * Continue carvedilol and Entresto as ordered * No need for diuretic therapy currently * Add bilateral compression stockings. * Assess orthostatic vital signs every shift I spent a total of 30 minutes on the date of service in preparation, delivery, and documentation of the care provided to this patient, excluding any time spent in the performance of separately billed services. Dileep Garica DO, [facility] History of Present Illness Reason for Consultation: Orthostatic dizziness; history of dilated cardiomyopathy Requesting Physician: Lidya Hospitalist Attending Physician: Dr. Garcia History of Present Illness Patient is a complex 79 year old male who was admitted to [facility] with dizziness/orthostasis. Patient has extensive cardiac history for which he has followed with multiple cardiology groups throughout [facility]. Most recently he has followed with Cardiology through the [facility]. Records reviewed from admission and limited records in [facility] from 2001. History includes: 1. Non-ischemic cardiomyopathy with severely reduced LVEF at 20-25%, dating back to 2000 per records. Normal coronary arteries at that time. He does report that his LVEF improved to 50% awhile ago, but then once again dropped to 25% per echo several weeks ago at the [facility] (records not available to review) 2. BIV AICD (Medtronic device) implanted to 2019 3. 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 Chronic obstructive pulmonary disease 5. HTN 6. Dyslipidemia 7. paroxysmal VT 8. PVD - Right SFA stent in 2018 Patient reports worsening dizziness with positional changes over the last few weeks with associated falls. No syncope or loss of consciousness. No ICD firings. no arrhythmias on device. He was started on Entresto several weeks ago in place of his low dose lisinopril. This was when his symptoms became more pronounced. Per review of med lsit, patient was also taking amlodipine, carvedilol, hydralazine as an outpatient. Also on finasteride and flomax. He reports he has chronic neuropathy and was told he "may have Parkinsons" He is not the best historian. He previously lived in [place] but moved to [place] 3 months ago to be closer to his daughter. At time of consult, patient feeling better. His amlodipine and hydralazine were stopped on admission. Treated with gentle IV fluids. This morning, his dizziness was not as pronounced. No chest pain or dyspnea. No orthopnea, PND or edema. He is also being treated for possible UTI on admission. Urine culture pending Allergies Allergy/AdvReac Type Severity Reaction Status Date / Time doxycycline AdvReac Verified 11/30/24 13:06 gabapentin AdvReac Verified 11/30/24 13:06 morphine AdvReac Verified 11/30/24 13:06 niacin AdvReac Verified 11/30/24 13:06 [From Niaspan Extended-Release] semaglutide AdvReac Verified 11/30/24 13:06 spironolactone AdvReac Verified 11/30/24 13:06 Home Medications Medication Instructions Recorded Confirmed Type acetaminophen 325 mg capsule 650 mg PO TID PRN PAIN/FEVER 11/01/24 12/20/24 History amlodipine 10 mg tablet 10 mg PO DAILY 11/01/24 12/20/24 History aspirin 81 mg tablet,delayed 81 mg PO DAILY 11/01/24 12/20/24 History release azithromycin 250 mg tablet 250 mg PO .MWF 11/01/24 12/20/24 History budesonide 160 mcg-glycopyr 9 2 inh inhalation BID 11/01/24 12/20/24 History mcg-formot 4.8 mcg/actuation HFA inhaler (Breztri Aerosphere) calcium carbonate-ergocalciferol 1 cap PO BID 11/01/24 12/20/24 History (vit D2) 1,200 mg-400 unit capsule carboxymethylcellulose sodium 1 % 1 drp ophthalmic (eye) QID 11/01/24 12/20/24 History eye gel in a dropperette carvedilol 25 mg tablet 25 mg PO BID 11/01/24 12/20/24 History cetirizine 10 mg tablet (Zyrtec) 10 mg PO DAILY PRN allergies 11/01/24 12/20/24 History ciclopirox 8 % topical solution 1 applic topical DAILY 11/01/24 12/20/24 History duloxetine 20 mg capsule,delayed 80 mg PO DAILY 11/01/24 12/20/24 History release finasteride 5 mg tablet 5 mg PO DAILY 11/01/24 12/20/24 History fluticasone propionate 50 1 spray intranasal BID PRN 11/01/24 12/20/24 History mcg/actuation nasal Congestion spray,suspension (Flonase Allergy Relief) fremanezumab-vfrm 225 mg/1.5 mL 225 mg subcut MONTHLY 11/01/24 12/20/24 History subcutaneous auto-injector guaifenesin 400 mg tablet 600 mg PO BID PRN cough 11/01/24 12/20/24 History hydralazine 50 mg tablet 50 mg PO BID 11/01/24 12/20/24 History insulin aspart U-100 100 unit/mL 18 unit subcut BID 11/01/24 12/20/24 History (3 mL) subcutaneous pen (Novolog FlexPen U-100 Insulin aspart) insulin glargine 100 unit/mL (3 56 unit subcut UD 11/01/24 12/20/24 History mL) subcutaneous pen liraglutide 0.6 mg/0.1 mL (18 mg/3 1.8 mg subcut DAILY 11/01/24 12/20/24 History mL) subcutaneous pen injector (FoodFan 2-Bhaskar) miconazole nitrate 2 % topical 1 applic topical BID 11/01/24 12/20/24 History powder nortriptyline 25 mg capsule 50 mg PO .QHS PRN pain 11/01/24 12/20/24 History omeprazole 20 mg capsule,delayed 20 mg PO BID 11/01/24 12/20/24 History release polyethylene glycol 3350 17 17 g PO DAILY PRN Constipation 11/01/24 12/20/24 History gram/dose oral powder primidone 50 mg tablet 125 mg PO .QHS tremors 11/01/24 12/20/24 History tamsulosin 0.4 mg capsule 0.4 mg PO BID 11/01/24 12/20/24 History ubrogepant 100 mg tablet 100 mg PO DIRECTED per migraine 11/01/24 12/20/24 History instructions albuterol sulfate 90 mcg/actuation 2 puff inhalation Q6H PRN sob 12/20/24 12/20/24 History aerosol inhaler carbamide peroxide 6.5 % ear drops 5 drp otic (ear) BID 12/20/24 12/20/24 History dextrose 15 gram/33 gram oral gel 15 g PO DIRECTED PRN low sugar 12/20/24 12/20/24 History packet glucagon HCl 1 mg solution for 1 mg IM DIRECTED PRN low blood 12/20/24 12/20/24 History injection (Glucagon (HCl) sugar Emergency Kit) ketorolac 0.5 % eye drops 1 drp ophthalmic (eye) UD 12/20/24 12/20/24 History metformin 500 mg tablet,extended 1,000 mg PO BID 12/20/24 12/20/24 History release 24 hr mineral oil-isopropyl myristat 1 applic topical DAILY PRN Dry Skin 12/20/24 12/20/24 History lotion moxifloxacin 0.5 % eye drops 1 drp ophthalmic (eye) QID 12/20/24 12/20/24 History prednisolone acetate 1 % eye 1 drp ophthalmic (eye) QID 12/20/24 12/20/24 History drops,suspension sacubitril 24 mg-valsartan 26 mg 1 tab PO BID 12/20/24 12/20/24 History tablet (Entresto) sodium chloride 0.65 % nasal spray 1 spray intranasal DAILY PRN dry 12/20/24 History aerosol nose zinc oxide 1 ea topical DAILY PRN skin 12/20/24 12/20/24 History protectant Patient History Social History Smoking Status: Former smoker Second Hand Exposure: No; Hx Alcohol Use: Yes Alcohol type: hard liquor Hx Substance Use: No Preferred Language: [place] Communication Ability: Effective Hearing Ability: Normal Soft Iron Inspector Required: No Beliefs That Will Affect Care: Hinduism Hinduism Beliefs: Methodist marital status: Unknown Current Living Situation: Family Current Living Situation Comment: Lives w/ daughter current occupation: retired Feels Safe at Home: Yes Diet: regular caffeine: Yes during the past year weight has: remained stable Assistive Devices: Cane and Walker Review of Systems Review of Systems: All systems reviewed & are unremarkable except as noted in HPI & below Physical Exam Constitutional: WD/WN, vitals as above well developed; no acute distress Neck: trachea midline, no thyromegaly Respiratory: normal respiratory effort; no cough Auscultation: no crackles and no rales Cardiovascular: Rate/Rhythm: regular rate and regular rhythm Heart Sounds: normal S1 and normal S2; no murmur Vessels: no JVD Extremities: no edema Gastrointestinal (Abdomen): normal bowel sounds, soft, nontender, no hepatosplenomegaly Musculoskeletal: no cyanosis or clubbing, extremities motor strength 5/5 Neurologic: PERRL, EOMI, accommodation nl, no face palsy, no dysarthria Results & Data Vital Signs (Past 12 Hours) Vital Signs Temp Pulse Pulse Resp BP Pulse Ox O2 Del Method 12/21/24 07:00 36.8 C 87 20 147/83 H 94 Room Air 12/21/24 03:36 36.5 C 94 Room Air 12/21/24 00:16 36.8 C 98 H 18 150/71 H 94 Room Air 12/20/24 21:48 98 H Laboratory Results Cardiac Enzymes 12/20/24 12/21/24 Range/Units 11:27 07:14 AST 13 12 L (13-39) U/L Troponin I High Sens 5.9 (0-20) pg/ml CBC 12/20/24 12/21/24 Range/Units 11:27 07:14 WBC 10.92 H 7.34 (4.8-10.8) K/ul RBC 5.66 5.23 (4.70-6.10) M/uL Hgb 15.1 14.1 (14.0-18.0) g/dl Hct 46.6 43.0 (42.0-52.0) % Plt Count 265 226 (130-400) K/uL Neut # (Auto) 7.88 H 4.89 (1.40-6.50) K/uL Lymph # (Auto) 1.54 1.08 L (1.20-3.40) K/uL [place] # (Auto) 1.09 H 1.00 H (0.11-0.59) K/uL Eos # (Auto) 0.24 0.25 (0.00-0.50) K/uL Baso # (Auto) 0.08 0.07 (0.00-0.20) K/uL Comprehensive Metabolic Panel 12/20/24 12/21/24 Range/Units 11:27 07:14 Sodium 131 L 135 L (136-145) mmol/L Potassium 4.3 4.0 (3.5-5.1) mmol/L Chloride 94 L 99 (98-107) mmol/L Carbon Dioxide 32 31 (21-32) mmol/L BUN 17 11 (6-23) mg/dl Creatinine 0.88 0.82 (0.6-1.4) mg/dl Glucose 237 H 162 H (70-99(Fasting)) mg/dl Calcium 9.8 8.6 (8.6-10.3) mg/dl AST 13 12 L (13-39) U/L ALT 12 10 (7-52) U/L Alkaline Phosphatase 82 72 (34-104) U/L Total Protein 7.4 6.6 (6.0-8.3) gm/dl Albumin 4.2 3.8 (3.4-5.0) gm/dl Intake and Output 12/20/24 12/21/24 12/21/24 22:59 06:59 14:59 Intake Total 400 / 1300 350 / 1300 Balance 400 / 1300 350 / 1300 Intake: Oral 400 / 750 350 / 750 Other: # Unmeasured Voids 3 1 Weight 97.8 kg 95.5 kg Weight Measurement Method [facility] Built in [facility] Diagnostic Findings Telemetry reviewed: Atrial sensed ventricular paced. no arrhythmias Device interrogation reviewed - Medtronic device implanted Jul 2019 Appropriate function and battery longevity of 2.2 years. EKG reviewed: Atrial sensed, ventricular paced rhythm 0 arrhythmias since March 2024 Total [employer] 98.1% Chest X-Ray 12/20/24 11:31 COMPARISON STUDY: None FINDINGS: Left-sided cardiac pacemaker is present. Heart size and pulmonary vasculature are normal. Lungs are hyperexpanded suggesting emphysema. No effusion, consolidation, or pneumothorax. There is an old right mid rib fracture. IMPRESSION: No acute findings. Head CTA 12/20/24 11:31 CT angio head wo/w CLINICAL HISTORY: dizzy COMPARISON STUDY: None FINDINGS: Noncontrast head CT: No intracranial hemorrhage seen. No mass effect, midline shift, or hydrocephalus. No skull fracture seen. CTA: The visualized distal left vertebral artery is extremely diminutive and terminates in PICA, anatomic variant. Distal right vertebral artery and bilateral distal internal carotid arteries are widely patent. Basilar artery is diminutive but patent. The anterior, middle, and posterior cerebral arteries are patent bilaterally. There is origin of the right RN GASTROENTEROLOGY. Cerebral venous sinuses opacify normally. There is a 1.2 cm mass anterior left temporal lobe series 6 image 103, possible meningioma. IMPRESSION: 1. No acute findings. 2. No significant arterial narrowing or occlusion seen at the brain. 3. Possible small meningioma anterior left temporal lobe. Neck CTA 12/20/24 11:31 Findings: Emphysema is incidentally noted within the visualized lung apices. There is no cervical lymphadenopathy. This exam is compromised by artifact related to contrast within the veins within the neck. The left vertebral artery is diminutive, likely on a congenital basis. Right vertebral artery is dominant. No stenosis or dissection within the right vertebral artery is present. There is mild plaque within the left carotid bifurcation without stenosis. There is moderate plaque within the right carotid bifurcation which results in mild stenosis of the proximal right internal carotid artery. Vessel measures 3.5 cm at site of narrowing and 4.8 mm distally. There is moderate stenosis at the origin the right external carotid artery. No aneurysm within the neck. IMPRESSION: 1. 30% stenosis of the proximal right internal carotid artery due to calcified atherosclerotic plaque. 2. Moderate stenosis at the origin the right external carotid artery. 3. Diminutive left vertebral artery, likely on a congenital basis. Dominant, patent right vertebral artery. Medications Administered Current Inpatient Medications Acetaminophen (Acetaminophen 325 Mg Tab) 650 mg PO Q4H PRN PRN Reason: Pain or Fever Stop: 01/19/25 16:57 Last Admin: 12/21/24 00:32 Dose: 650 mg Aspirin (Aspirin 81 Mg Ectab) 81 mg PO DAILY [facility] Stop: 01/20/25 08:59 Calcium Carbonate (Calcium Carbonate 500 Mg Chewable Tab) 500 mg PO Q6H PRN PRN Reason: Indigestion Stop: 01/19/25 18:36 Last Admin: 12/20/24 19:54 Dose: 500 mg Carvedilol (Carvedilol 25 Mg Tab) 25 mg PO BIDM [facility]IO Stop: 01/19/25 20:59 Last Admin: 12/20/24 20:31 Dose: 25 mg Dextrose (Dextrose 50% 50 Ml Syringe) 25 - 50 ml IV UD PRN; Protocol PRN Reason: Hypoglycemia Protocol Stop: 01/19/25 14:40 Duloxetine HCl (Duloxetine Hcl 20 Mg Cap) 80 mg PO DAILY [facility] Stop: 01/20/25 08:59 Enoxaparin Sodium (Enoxaparin Inj 40 Mg/0.4 Ml Syr) 40 mg SQ DAILY [facility] Stop: 01/20/25 08:59 Fluticasone Furoate (Fluticasone Furoate 200mcg 14 Puffs/Inhaler) 1 puffs INH DAILY [facility] Stop: 01/20/25 08:59 Glucagon (Glucagon For Inj 1 Mg Vial) 1 mg SQ UD PRN; Protocol PRN Reason: Hypoglycemia Protocol Stop: 01/19/25 14:40 Glucose (Glucose 40% Gel 15 Gm Tube) 15 - 30 gm PO UD PRN; Protocol PRN Reason: Hypoglycemia Protocol Stop: 01/19/25 14:40 Glucose (Glucose 10 Tab/Tube) 4 - 8 tab PO UD PRN; Protocol PRN Reason: Hypoglycemia Protocol Stop: 01/19/25 14:40 Guaifenesin/Dextromethorphan (Guaifenesin/Dextrom Syrup 100mg/10mg 5ml Udc) 5 ml PO Q6H PRN PRN Reason: Cough Stop: 01/19/25 20:02 Last Admin: 12/21/24 02:44 Dose: 5 ml Insulin Aspart (Insulin Aspart Per Unit Charge) 0 units [place] ACHS [facility] Stop: 01/19/25 16:29 Last Admin: 12/21/24 08:28 Dose: 9 units Miscellaneous (Carbohydrates For Hypoglycemia ) 15 - 30 gm PO UD PRN PRN Reason: Hypoglycemia Protocol Stop: 01/19/25 14:40 Miscellaneous Information (Pharmacy Glycemic Mgmt Consult) 1 each N/A UD PRN PRN Reason: Consult Stop: 01/19/25 14:40 Nortriptyline HCl (Nortriptyline Hcl 25 Mg Cap) 50 mg PO HS PRN PRN Reason: pain Stop: 01/19/25 16:57 Pantoprazole Sodium (Pantoprazole 40 Mg Tab) 40 mg PO DAILY PRN PRN Reason: gerd Stop: 01/19/25 17:36 Last Admin: 12/20/24 22:37 Dose: 40 mg Sacubitril/Valsartan (Valsartan/Sacubitril 26/24mg Tab) 1 tab PO BID [facility] Stop: 01/19/25 20:59 Last Admin: 12/20/24 20:31 Dose: 1 tab Tamsulosin HCl (Tamsulosin Hcl 0.4 Mg Cap) 0.4 mg PO DAILY [facility] Stop: 01/20/25 08:59 Umeclidinium/Vilanterol (Umeclidinium/Vilanterol 62.5/25mcg 7 Puffs/Inhaler) 1 puffs INH DAILY [facility] Stop: 01/20/25 08:59
[2024-12-21 08:35] LABS: Estimated Average Glucose 169 mg/dl; Hemoglobin A1C 7.5 % (4.5-5.6)
[2024-12-21] MEDS: TAMSULOSIN HCL 0.4 MG CAP PO SCH (08:50)
[2024-12-21] MEDS: ENOXAPARIN INJ 40 MG/0.4 ML SYR SQ SCH (08:50)
[2024-12-21] MEDS: DULoxetine HCL 20 MG CAP PO SCH (08:51)
[2024-12-21] MEDS: ASPIRIN 81 MG ECTAB PO SCH (08:51)
[2024-12-21] MEDS: UMECLIDINIUM/VILANTEROL 62.5/25MCG 7 PUFFS/INHALER INH SCH (08:52)
[2024-12-21] MEDS: FLUTICASONE FUROATE 200MCG 14 PUFFS/INHALER INH SCH (08:52)
--- NOTE | 2024-12-21 10:27 | Electrocardiogram Report ---
Test Reason : Blood Pressure : */* mmHG Vent. Rate : 92 BPM Atrial Rate : 92 BPM P-R Int : 122 ms QRS Dur : 172 ms QT Int : 424 ms P-R-T Axes : 83 262 72 degrees QTcB Int : 524 ms Atrial-sensed ventricular-paced rhythm Biventricular pacemaker detected Abnormal ECG When compared with ECG of 20-Dec-2024 11:22, Electronic ventricular pacemaker has replaced Sinus rhythm Confirmed by Emeterio Pond ([id number]) on 12/21/2024 10:27:19 AM Referred By: REFERRED SELF Confirmed By: Emeterio Pond
--- NOTE | 2024-12-21 11:49 | Pharmacy Report ---
Pharmacy Glycemic Short Note 2 - Date of Service December 21, 2024 - Glycemic Short BSG Results (Last 24 hours): 12/20/24 12/20/24 12/20/24 11:27 16:33 20:21 Glucose 237 H POC Glucose 157 H 174 H 12/21/24 12/21/24 12/21/24 07:01 07:14 10:57 Glucose 162 H POC Glucose 154 H 138 H OUTPATIENT ANTIDIABETIC REGIMEN: * Victoza 1.8mg SQ daily * Lantus 50 units SQ daily * NovoLog 18 units SQ BID * metformin 1000mg BID HbA1c: 7.5% on 12/21/24 ASSESSMENT: 12/21 * Patient received a total of 56 units of insulin yesterday (50 units of Lantus was given prior to arrival per patient + 6 units of bolus insulin given here last night). * Fasting BSG was in goal range this morning at 154mg/dL. Lunch BSG was only 138mg/dL so do not want to give full home dose of Lantus. A Lantus scale (0-10-or 20 units depending on BSG) was ordered for this evening. * Bolus insulin with previously ordered parameters will be continued without change. 12/20 * Shelton is a 79 year old male admitted with dizziness and falls with a history of type 2 diabetes mellitus. Pharmacy has been consulted to assist with glycemic management while inpatient. * BSG upon admission elevated, will initiate basal insulin up to a weight based stress of 2 with dinner meal based on BSG. * NovoLog initiated at a weight based stress of 2, will stick with a higher goal range for now as presenting with dizziness and falls and do not want to cause additional hypoglycemia. PLAN FOR INPATIENT GLYCEMIC CONTROL: * Hold outpatient oral diabetes medications * Basal insulin * Lantus 0-20 units SQ HS based on BSG (see eMAR for additional details) * Bolus insulin * NovoLog per scale ACHS or Q6hrs while NPO * Goal Range: Low 120 mg/dL - High 160 mg/dL * Correction Factor: 25 mg/dL/unit * Nutritional / Prandial insulin per carb ratio of 1 unit per 8 grams CHO consumed
[2024-12-21] MEDS: LANTUS PER UNIT CHARGE SC SCH (21:10)
[2024-12-22 07:26] VITALS: O2SAT 94
[2024-12-22 07:49] LABS: Hematocrit (blood only) 41.8 % (42.0-52.0); Hemoglobin 13.7 g/dl (14.0-18.0); Mean Corpuscular Hgb Conc 32.8 g/dL (32.0-36.0); Mean Corpuscular Volume 82.3 fL (80.0-100.0); Mean Platelet Volume 9.6 fL (9.4-12.4); Platelet Count 214 K/uL (130-400); RDW Coefficient of Variation 14.6 % (11.5-14.5); RDW Standard Deviation 44.1 fL (36.4-46.3); Red Blood Count 5.08 M/uL (4.70-6.10); White Blood Count 6.59 K/ul (4.8-10.8)
[2024-12-22 08:19] LABS: BUN Creatinine Ratio 11.5 (10-20); Calcium 8.2 mg/dl (8.6-10.3); Creatinine Clr Calc Pharmacy 92.2 ml/min; Magnesium 1.9 mg/dl (1.7-2.4); Phosphorus 3.2 mg/dl (2.5-4.9); Potassium 3.9 mmol/L (3.5-5.1)
[2024-12-22] MEDS: NORTRIPTYLINE HCL 25 MG CAP PO PRN (08:49)
[2024-12-22 10:39] VITALS: BP 126/72; RESP 20; TEMP 97.9
--- NOTE | 2024-12-22 11:46 | Discharge Summary ---
Date of Service December 22, 2024 Admission HPI Per Admitting Provider The patient is a 79-year-old man with a past medical history of cardiomyopathy, nonischemicEF 20 to 25%, PM, mitral valve regurgitation, COPD, CHF, HTN, HLD who presents to the ED with complaints of ongoing dizziness and intermittent shortness of breath over the past month. Patient reports 34 recent falls over the past week due to dizziness with positional changes. Follows with cardiology. Poor historian. Unclear what cardiac medications he takes. He also reports being recently taken off one of his cardiac medications due to concerns of orthostasis. He is unsure which medication was changed. 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 He denies any lower extremity swelling. Denies any nausea/vomiting/diarrhea. Denies any abdominal pain. Reports dizziness with any type of movement. Follows with the [facility] outpatient for cardiology. Reports getting a recent echo and his EF is still 25%. On arrival to the ED, labs remarkable for WBC 10.9, NA 131, chloride 94, glucose 237 Chest x-ray negative Neck CTA showed: 1. 30% stenosis of the proximal right internal carotid artery due to calcified atherosclerotic plaque. 2. Moderate stenosis at the origin the right external carotid artery. 3. Diminutive left vertebral artery, likely on a congenital basis. Dominant, patent right vertebral artery. Head CTA showed: 1. No acute findings. 2. No significant arterial narrowing or occlusion seen at the brain. 3. Possible small meningioma anterior left temporal lobe. EKG without any acute changes The patient be admitted for further management of dizziness and orthostasis Admission Exam Per Admitting Provider Constitutional: WD/WN, vitals as above Eyes: PERRL, conjunctivae normal, anicteric sclerae ENMT: external ear and nose normal, oropharynx normal Neck: trachea midline, no thyromegaly Respiratory: normal respiratory effort, lungs clear to auscultation Cardiovascular: RRR, no murmur, no edema Gastrointestinal (Abdomen): normal bowel sounds, soft, nontender, no hepatosplenomegaly Musculoskeletal: no cyanosis or clubbing, extremities motor strength 5/5 Neurologic: PERRL, EOMI, accommodation nl, no face palsy, no dysarthria Psychiatric: A+Ox3, euthymic affect Lymphatic: no cervical or axillary lymphadenopathy Principal Diagnosis (1) Orthostasis: (2) Dizziness: (3) Dilated cardiomyopathy: (4) Biventricular automatic implantable cardioverter defibrillator in situ Discharge Exam Constitutional: WD/WN, vitals as above Eyes: PERRL, EOMI, conjunctivae normal, anicteric sclerae ENMT: external ear and nose normal Neck: supple Respiratory: normal respiratory effort, lungs clear to auscultation Cardiovascular: RRR, no murmur, no edema Gastrointestinal (Abdomen): normal bowel sounds, soft, nontender Musculoskeletal: extremities motor strength 5/5 Neurologic: PERRL, EOMI, no face palsy, no dysarthria, moves extremities Psychiatric: A+Ox3, euthymic affect Discharge Data Allergies Allergy/AdvReac Type Severity Reaction Status Date / Time doxycycline AdvReac Verified 11/30/24 13:06 gabapentin AdvReac Verified 11/30/24 13:06 morphine AdvReac Verified 11/30/24 13:06 niacin AdvReac Verified 11/30/24 13:06 [From Niaspan Extended-Release] semaglutide AdvReac Verified 11/30/24 13:06 spironolactone AdvReac Verified 11/30/24 13:06 Consultations 12/20/24 13:17 ED Decision to Admit Stat 12/20/24 16:58 Consult Cardiology Routine Ordered Studies 12/20/24 11:31 CT angio head wo/w Stat FINDINGS: Noncontrast head CT: No intracranial hemorrhage seen. No mass effect, midline shift, or hydrocephalus. No skull fracture seen. CTA: The visualized distal left vertebral artery is extremely diminutive and terminates in PICA, anatomic variant. Distal right vertebral artery and bilateral distal internal carotid arteries are widely patent. Basilar artery is diminutive but patent. The anterior, middle, and posterior cerebral arteries are patent bilaterally. There is origin of the right PROP[employer] INS[employer]ENT. Cerebral venous sinuses opacify normally. There is a 1.2 cm mass anterior left temporal lobe series 6 image 103, possible meningioma. IMPRESSION: 1. No acute findings. 2. No significant arterial narrowing or occlusion seen at the brain. 3. Possible small meningioma anterior left temporal lobe. CT angio neck with con Stat Findings: Emphysema is incidentally noted within the visualized lung apices. There is no cervical lymphadenopathy. This exam is compromised by artifact related to contrast within the veins within the neck. The left vertebral artery is diminutive, likely on a congenital basis. Right vertebral artery is dominant. No stenosis or dissection within the right vertebral artery is present. There is mild plaque within the left carotid bifurcation without stenosis. There is moderate plaque within the right carotid bifurcation which results in mild stenosis of the proximal right internal carotid artery. Vessel measures 3.5 cm at site of narrowing and 4.8 mm distally. There is moderate stenosis at the origin the right external carotid artery. No aneurysm within the neck. IMPRESSION: 1. 30% stenosis of the proximal right internal carotid artery due to calcified atherosclerotic plaque. 2. Moderate stenosis at the origin the right external carotid artery. 3. Diminutive left vertebral artery, likely on a congenital basis. Dominant, patent right vertebral artery. Hospital Course (1) Peripheral arterial disease: (2) Cardiomyopathy: (3) Orthostasis: (4) HLD (hyperlipidemia): Plan The patient is a 79-year-old male with a past medical history of cardiomyopathy, EF 25% who presents to the ED on with complaints of dizziness and frequent falls over the past month, recently worsening over the past week Dizziness Orthostasis Dizziness worsening with positional changes, suggestive of orthostasis Follows with outpatient cardiology for possible adjusting of cardiac medications Check orthostatic vitals, check echo, tried lightly with IV fluids with low EF of 25% Consult cardiology for further recommendations with extensive cardiac history Hx ischemic cardiomyopathy/CHF Hx HLD Hx HTN Continue carvedilol, hold hydralazine/Norvasc, continue Entresto Unclear if patient is currently on a diuretic, appears euvolemic on exam Echo- LV syst. function is moderate to severely reduced. LV EF 30-35%. Septal and apical wall motion consistent w/ pacemaker activation. Otherwise, moderate diffuse hypokinesis. LA is mildly dilated. Moderate mitral regurg. Doppler findings do not suggest pulmonary hypertension. Per cardiology- Recommendations: * Hold hydralazine and amlodipine * Continue carvedilol and Entresto as ordered * No need for diuretic therapy currently * Add bilateral compression stockings. 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 Hx COPD: Continue home inhalers, nonactive COPD exacerbation Hx DM2 - resume metformin on DC Total Time Total Time Spent Total Time Spent (In Minutes): 40 Discharge Plan Discharge Items Patient Disposition: Home - Self-Care Reason For Visit: FLORINESS, HYPOTENSION Discharge Diagnosis: (1) Orthostasis: (2) Dizziness: (3) Dilated cardiomyopathy: (4) Biventricular automatic implantable cardioverter defibrillator in situ Activity: Per Instructions section Non-emergency contact: Primary Care Provider and Business Developer Call non-emergency contact if: you have any medication questions and your symptoms worsen Follow-up/Referrals: Layla Scanlon PA-C [Primary Care Provider] - Diet: Carb Consistent or DM2 Addtl Attending Provider Instructions: Follow up with primary care doctor and cardiology. Stop taking hydralazine and amlodipine for now. Continue taking carvedilol and Entresto. Recommend using compression stockings. Pending Studies at Discharge: Yes Studies:: blood cultx, urine cultx Stand-Alone Forms: [employer], Smoking Cessation Medications and DC Order Prescriptions: Continued aspirin 81 mg tablet,delayed release (DR/EC) 81 mg PO DAILY azithromycin 250 mg tablet 250 mg PO .MWF Rx Instructions: M/W/F for COPD Breztri Aerosphere 160-9-4.8 mcg/actuation HFA aerosol inhaler 2 inh inhalation BID calcium carbonate-vitamin D2 1,200-400 mg-unit capsule 1 cap PO BID carboxymethylcellulose sodium 1 % dropperette,gel 1 drp ophthalmic (eye) QID carvedilol 25 mg tablet 25 mg PO BID Rx Instructions: must administer with a meal/food cetirizine [Zyrtec] 10 mg tablet 10 mg PO DAILY PRN (Reason: allergies) ciclopirox 8 % solution 1 applic topical DAILY duloxetine 20 mg capsule,delayed release(DR/EC) 80 mg PO DAILY finasteride 5 mg tablet 5 mg PO DAILY fluticasone propionate [Flonase Allergy Relief] 50 mcg/actuation spray,suspension 1 spray intranasal BID PRN (Reason: Congestion) Rx Instructions: administer into each nostril fremanezumab-vfrm 225 mg/1.5 mL auto-injector 225 mg subcut MONTHLY insulin aspart U-100 [Novolog FlexPen U-100 Insulin] 100 unit/mL (3 mL) insulin pen 18 unit subcut BID insulin glargine 100 unit/mL (3 mL) insulin pen 56 unit subcut UD Rx Instructions: 56 u subcut daily. Per [facility] list, 50 units daily. liraglutide [Victoza 2-Bhaskar] 0.6 mg/0.1 mL (18 mg/3 mL) pen injector 1.8 mg subcut DAILY miconazole nitrate 2 % powder 1 applic topical BID nortriptyline 25 mg capsule 50 mg PO .QHS PRN (Reason: pain ) omeprazole 20 mg capsule,delayed release(DR/EC) 20 mg PO BID polyethylene glycol 3350 17 gram/dose powder 17 g PO DAILY PRN (Reason: Constipation) primidone 50 mg tablet 125 mg PO .QHS tamsulosin 0.4 mg capsule 0.4 mg PO BID ubrogepant 100 mg tablet 100 mg PO DIRECTED acetaminophen 325 mg capsule 650 mg PO TID PRN (Reason: PAIN/FEVER) guaifenesin 400 mg tablet 600 mg PO BID PRN (Reason: cough) ketorolac 0.5 % Drops 1 drp OPHTHALMIC (EYE) UD Rx Instructions: 1 drp right eye qid start 7 days before surgery carbamide peroxide 6.5 % Drops 5 drp OTIC (EAR) BID Rx Instructions: up to 4 days albuterol sulfate 90 mcg/actuation Hfa Aerosol Inhaler 2 puff INHALATION Q6H PRN (Reason: sob) metformin 500 mg Tablet Extended Release 24 Hr 1,000 mg PO BID Eucerin Lotion 1 applic TOPICAL DAILY PRN (Reason: Dry Skin) dextrose 15 gram/33 gram Gel In Packet 15 g PO DIRECTED PRN (Reason: low sugar) glucagon HCl [Glucagon (HCl) Emergency Kit] 1 mg Recon Soln 1 mg IM DIRECTED PRN (Reason: low blood sugar) moxifloxacin 0.5 % Drops 1 drp OPHTHALMIC (EYE) QID Rx Instructions: start 3 days before surgery sodium chloride 0.65 % Aerosol,[place] 1 spray INTRANASAL DAILY PRN (Reason: dry nose) zinc oxide Paste 1 ea topical DAILY PRN (Reason: skin protectant ) Entresto 24-26 mg Tablet 1 tab PO BID prednisolone acetate 1 % Drops,Suspension 1 drp OPHTHALMIC (EYE) QID Rx Instructions: right eye. start day after surgery Discontinued hydralazine 50 mg tablet 50 mg PO BID amlodipine 10 mg tablet 10 mg PO DAILY Discharge Orders: Discharge Order (Routine); Ordered 12/22/24 Ordered By: Gal Escobar/Other Patient Handouts: Managing Type 2 Diabetes Admission Data Admit Date/Time: 12/20/24 13:14 Attending Provider: Gal Alejandra Admit Provider: Elizabeth Morgan Primary Care Provider: Layla Scanlon Other Providers: Elizabeth Morgan; Alexys Love; [facility]
[2024-12-22 11:55] VITALS: PULSE 88
--- NOTE | 2024-12-23 13:06 | Electrocardiogram Report ---
Test Reason : Blood Pressure : */* mmHG Vent. Rate : 85 BPM Atrial Rate : 85 BPM P-R Int : 172 ms QRS Dur : 140 ms QT Int : 406 ms P-R-T Axes : 95 266 80 degrees QTcB Int : 483 ms Atrial-sensed ventricular-paced rhythm Abnormal ECG When compared with ECG of 21-Dec-2024 05:09, Vent. rate has decreased by 7 bpm Confirmed by Nabil Rose ([id number]) on 12/23/2024 1:06:07 PM Referred By: REFERRED SELF Confirmed By: Naibl Rose
== END 2024-12-22 13:01 | disposition home or self-care (01) | DRG 312 ==
LOC: ED 11:15 → 2S 13:14 → SUATTDRO 13:14 → 2S 16:38